=== PATIENT | female | born 1945 | race Caucasian/White ===

== ENCOUNTER 2018-04-30 16:08 | Observation (INO) | payer OTHER, MEDICARE ==
[2018-04-30 16:16] VITALS: BMI 31.8
--- NOTE | 2018-04-30 16:18 | PDOC ---
Attending Attestation - Resident Resident Name: SinghMoo adames - HPI HPI: 04/30/18 19:26 04/30/18 19:33 04/30/18 19:34 Pt presents to the ED complaining of chest pain, shortness of breath and palpitations. Denies prior history of arrythmia. History of WA with stents 9 years ago. Also reports some SEBASTIAN and generalized weakness that has been worsening over the past few days. - Physicial Exam PE: 04/30/18 19:36 Agree with resident exam. PAtient is alert and in NAD. CV: RRR no M/r/g/ Pulm : CTA b/l EXt: no edema. - Critical Care Time Total Critical Care Time: 35 Critical Care Statement: The care of this patient involved high complexity decision making to prevent further life threatening deterioration of the patient 's condition and/or to evaluate & treat vital organ system(s) failure or risk of failure. - Medical Decision Making 04/30/18 19:34 Pt presents to the ED complaining of the acute onset of chest pain, shortness of breath and palpitations. Extremely tachycardic on arrival to the ED. Resolved after adenosine 6. Given her chest pain and her multiple risk factors for cardiac disease, will admit to medicine for r/o ACS.
[2018-04-30] MEDS ORDERED: ADENOSINE 6 MG/2 ML VIAL IVPUSH ONE ×2 (16:28→16:40)
[2018-04-30] MEDS ORDERED: SODIUM CHLORIDE 1,000 ML IV STA (16:35)
[2018-04-30 16:44] LABS: BASO % 0.7 % (0-2.0); EOS % 0.7 % (0-4.5); HEMATOCRIT 38.7 % (32.4-45.2); HEMOGLOBIN 13.7 GM/dL (10.7-15.3); LYMPH % 28.3 % (8-40); MCH 31.3 pg (25.7-33.7); MCHC 35.5 g/dl (32.0-36.0); MEAN CELL VOLUME 88.1 fl (80-96); MEAN PLT VOLUME 10.3 fl (7.5-11.1); NEUT % 61.3 % (42.8-82.8); PLATELET COUNT 211 K/MM3 (134-434); RBC 4.39 M/mm3 (3.60-5.2); RDW 12.5 % (11.6-15.6); WHITE BLOOD COUNT 7.2 K/mm3 (4.0-10.0)
[2018-04-30 17:33] LABS: ALBUMIN 4.2 g/dl (3.4-5.0); ALK PHOS 74 U/L (45-117); ANION GAP 8 MMOL/L (8-16); BILIRUBIN,TOTAL 0.6 mg/dL (0.2-1); BLOOD UREA NITROGEN 21 mg/dL (7-18); CALCIUM 9.1 mg/dL (8.5-10.1); CHLORIDE 101 mmol/L (98-107); CO2 27 mmol/L (21-32); GLUCOSE,RANDOM 130 mg/dL (74-106); POTASSIUM 3.9 mmol/L (3.5-5.1); SGOT/AST 35 U/L (15-37); SGPT/ALT 58 U/L (13-61); SODIUM 136 mmol/L (136-145); TOT PROT 7.2 g/dl (6.4-8.2)
--- NOTE | 2018-04-30 18:02 | PDOC ---
History of Present Illness - General Chief Complaint: Chest Pain Stated Complaint: CHEST PAIN Time Seen by Provider: 04/30/18 16:17 History Source: Patient Exam Limitations: No Limitations - History of Present Illness Initial Comments: 04/30/18 18:02 Patient is a 72F with history of CAD s/p stenting, hiatal hernia, HTN coming in today complaining of palpitations and chest discomfort that started at 3:15pm today. Denies associated shortness of breath, fever, chills, cough, nausea vomiting. Denies history of blood clots, leg swelling, chf history. Patient states that the symptoms started suddenly, took nitro without improvement. Past History - Past Medical History Allergies/Adverse Reactions: Allergies Allergy/AdvReac Type Severity Reaction Status Date / Time No Known Allergies Allergy Verified 04/30/18 16:16 Home Medications: Ambulatory Orders Amlodipine Besylate 5 mg PO DAILY 04/30/18 Losartan Potassium 50 mg PO BID 04/30/18 Rosuvastatin [Crestor -] 10 mg PO DAILY 04/30/18 COPD: No GI Disorders: Yes (hiatal hernia) - Suicide/Smoking/Psychosocial Hx Smoking History: Never smoked Information on smoking cessation initiated: No Hx Alcohol Use: No Drug/Substance Use Hx: No Review of Systems - Review of Systems Able to Perform ROS?: Yes Comments:: 04/30/18 18:25 GENERAL/CONSTITUTIONAL: No fever or chills. No weakness. HEAD, EYES, EARS, NOSE AND THROAT: No change in vision. No sore throat. CARDIOVASCULAR: +chest pain no shortness of breath RESPIRATORY: No cough, wheezing, or hemoptysis. GASTROINTESTINAL: No nausea, vomiting, diarrhea or constipation. GENITOURINARY: No dysuria, frequency, or change in urination. MUSCULOSKELETAL: No joint or muscle swelling or pain. No neck or back pain. SKIN: No rash NEUROLOGIC: No headache, vertigo, loss of consciousness, or change in strength/ sensation. HEMATOLOGIC/LYMPHATIC: No anemia, easy bleeding, or history of blood clots. ALLERGIC/IMMUNOLOGIC: No hives or skin allergy. *Physical Exam - Vital Signs Last Vital Signs Temp Pulse Resp BP Pulse Ox 98 F 78 18 120/70 99 04/30/18 17:30 04/30/18 17:30 04/30/18 17:30 04/30/18 17:30 04/30/18 17:30 - Physical Exam Comments: 04/30/18 18:25 GENERAL: Awake, alert, and fully oriented, in no acute distress HEAD: No signs of trauma, normocephalic, atraumatic EYES: PERRLA, EOMI, sclera anicteric, conjunctiva clear ENT: Auricles normal inspection, hearing grossly normal, nares patent, oropharynx clear without exudates. Moist mucosa NECK: Normal ROM, supple, no lymphadenopathy, JVD, or masses LUNGS: No distress, speaks full sentences, clear to auscultation bilaterally HEART: Tachycardic, regular no murmurs, rubs or gallops, peripheral pulses normal and equal bilaterally. ABDOMEN: Soft, nontender, normoactive bowel sounds. No guarding, no rebound. No masses EXTREMITIES: Normal inspection, Normal range of motion, no edema. No clubbing or cyanosis. NEUROLOGICAL: Cranial nerves II through XII grossly intact. Normal speech, normal gait, no focal sensorimotor deficits SKIN: Warm, Dry, normal turgor, no rashes or lesions noted. Moderate Sedation - Procedure Monitoring Vital Signs: Procedure Monitoring Vital Signs Temperature 98 F 04/30/18 17:30 Pulse Rate 78 04/30/18 17:30 Respiratory Rate 18 04/30/18 17:30 Blood Pressure 120/70 04/30/18 17:30 O2 Sat by Pulse Oximetry (%) 99 04/30/18 17:30 ED Treatment Course - LABORATORY CBC & Chemistry Diagram: 04/30/18 16:30 04/30/18 16:30 - ADDITIONAL ORDERS Additional order review: Laboratory Results 04/30/18 04/30/18 16:30 16:30 D-Dimer 270 Sodium 136 Potassium 3.9 Chloride 101 Carbon Dioxide 27 Anion Gap 8 BUN 21 H Creatinine 1.0 Creat Clearance w eGFR 54.35 Random Glucose 130 H Calcium 9.1 Total Bilirubin 0.6 AST 35 ALT 58 Alkaline Phosphatase 74 Creatine Kinase 129 Troponin I < 0.02 Total Protein 7.2 Albumin 4.2 TSH 1.88 04/30/18 16:30 RBC 4.39 MCV 88.1 MCHC 35.5 RDW 12.5 MPV 10.3 Neutrophils % 61.3 Lymphocytes % 28.3 Monocytes % 9.0 Eosinophils % 0.7 Basophils % 0.7 - Medications Given in the ED: ED Medications Discontinued Medications Generic Name Dose Route Start Last Admin Trade Name Mago PRN Reason Stop Dose Admin Adenosine 6 mg 04/30/18 16:40 04/30/18 16:40 Adenocard - IVPUSH 04/30/18 16:41 6 mg ONCE ONE Administration Sodium Chloride 1,000 mls @ 1,000 mls/hr 04/30/18 16:35 04/30/18 16:39 Normal Saline - IV 04/30/18 17:34 1,000 mls/hr ASDIR STA Administration Medical Decision Making - Critical Care Time Total Critical Care Time (minutes): 35 Critical Care Statement: The care of this patient involved high complexity decision making to prevent further life threatening deterioration of the patient 's condition and/or to evaluate & treat vital organ system(s) failure or risk of failure. - Medical Decision Making 04/30/18 18:26 Patient is 72F with history of CAD, HTN here today with palpitations and chest pain. Vitals notable for tachycardia. Initial BP low in triage. Repeated at 92/ 78. Airway protected, equal breath sounds, good distal pulses w/ normal bp, mentation normal with normal basic neuro exam. Initial EKG showed SVT. Adenosine 6mg given, 1L NS started. SVT broke with adenosine, remained in sinus tachycardia to ~115. After fluid administration, HR in 80s. BP remained stable. 04/30/18 18:44 CBC normal. CMP reassuring. Trop neg. D-dimer normal. TSH normal. CXR clear. Will admit to tele obs for further monitoring of SVT. 04/30/18 19:05 D/W Dr Solorzano, accepted to tele obs. *DC/Admit/Observation/Transfer Diagnosis at time of Disposition: SVT (supraventricular tachycardia) - Discharge Dispostion Condition at time of disposition: Stable Decision to Admit order: Yes - Referrals - Patient Instructions - Post Discharge Activity
--- NOTE | 2018-04-30 19:08 | HP ---
CHIEF COMPLAINT:palpitation , chest discomfort sore throat PCP:Dr Alexander ([facility] ) HISTORY OF PRESENT ILLNESS: Patient is a 72F with history of CAD s/p stenting, hiatal hernia, HTN coming in today complaining of palpitations and chest discomfort that started at 3:15pm today. Denies associated shortness of breath, fever, chills, cough,orthopnea, dyspnea on exertion , Denies history of blood clots, leg swelling. Patient states that the symptoms started suddenly, took nitro without improvement. reports one history of sinus congestion , one time N/V last week denies any urinary symptoms denies any ER course was notable for: (1)EKG (2)Adenosin (3)IV fluids Recent Travel:denies PAST MEDICAL HISTORY: CAD s/p stenting, hiatal hernia, HTN, GERD PAST SURGICAL HISTORY: CAtaract R eye , Carpal tunnel surgery R hand Social History: Smoking:quit 30 years ago , smoked 28 yeas 1 PPD Alcohol:wine socially Drugs: denies Family History: Father heart disease , Mother HTN , stroke and sister with asthma , daughter with thyroid disease Allergies No Known Allergies Allergy (Verified 04/30/18 16:16) HOME MEDICATIONS: Home Medications Medication Instructions Recorded Amlodipine Besylate 5 mg PO DAILY 04/30/18 Losartan Potassium 50 mg PO BID 04/30/18 Rosuvastatin [Crestor -] 10 mg PO DAILY 04/30/18 REVIEW OF SYSTEMS CONSTITUTIONAL: Absent: fever, chills, diaphoresis, generalized weakness, malaise, loss of appetite, weight change HEENT: Absent: rhinorrhea, nasal congestion, throat pain, throat swelling, difficulty swallowing, mouth swelling, ear pain, eye pain, visual changes CARDIOVASCULAR: Absent: chest discomfort , syncope, palpitations, irregular heart rate, lightheadedness, peripheral edema RESPIRATORY: Absent: cough, shortness of breath, dyspnea with exertion, orthopnea, wheezing, stridor, hemoptysis GASTROINTESTINAL: Absent: abdominal pain, abdominal distension, nausea, vomiting, diarrhea, constipation, melena, hematochezia GENITOURINARY: Absent: dysuria, frequency, urgency, hesitancy, hematuria, flank pain, genital pain MUSCULOSKELETAL: Absent: myalgia, arthralgia, joint swelling, back pain, neck pain SKIN: Absent: rash, itching, pallor HEMATOLOGIC/IMMUNOLOGIC: Absent: easy bleeding, easy bruising, lymphadenopathy, frequent infections ENDOCRINE: Absent: unexplained weight gain, unexplained weight loss, heat intolerance, cold intolerance NEUROLOGIC: Absent: headache, focal weakness or paresthesias, dizziness, unsteady gait, seizure, mental status changes, bladder or bowel incontinence PSYCHIATRIC: Absent: anxiety, depression, suicidal or homicidal ideation, hallucinations. PHYSICAL EXAMINATION Vital Signs - 24 hr 04/30/18 04/30/18 04/30/18 16:10 17:17 17:30 Temperature 98.8 F 98 F Pulse Rate 170 H Pulse Rate [ 78 Apical] Respiratory 19 18 Rate Blood Pressure 88/55 L Blood Pressure 120/70 [Right Arm] O2 Sat by Pulse 98 98 99 Oximetry (%) GENERAL: Awake, alert, and fully oriented, in no acute distress. HEAD: Normal with no signs of trauma. EYES: Pupils equal, round and reactive to light, extraocular movements intact, sclera anicteric, conjunctiva clear. No lid lag. EARS, NOSE, THROAT: Ears normal, nares patent, oropharynx clear without exudates. Moist mucous membranes. NECK: Normal range of motion, supple without lymphadenopathy, JVD, or masses. LUNGS: Breath sounds equal, clear to auscultation bilaterally. No wheezes, and no crackles. No accessory muscle use. HEART: Regular rate and rhythm, normal S1 and S2 without murmur, rub or gallop. ABDOMEN: Soft, nontender, not distended, normoactive bowel sounds, no guarding, no rebound, no masses. No hepatomegaly or splenomegaly. MUSCULOSKELETAL: Normal range of motion at all joints. No bony deformities or tenderness. No CVA tenderness. UPPER EXTREMITIES: 2+ pulses, warm, well-perfused. No cyanosis. No clubbing. No peripheral edema. LOWER EXTREMITIES: 2+ pulses, warm, well-perfused. No calf tenderness. No peripheral edema. NEUROLOGICAL: Cranial nerves II-XII intact. Normal speech. Normal gait. PSYCHIATRIC: Cooperative. Good eye contact. Appropriate mood and affect. SKIN: Warm, dry, normal turgor, no rashes or lesions noted, normal capillary refill. Laboratory Results - last 24 hr 04/30/18 04/30/18 04/30/18 16:30 16:30 16:30 WBC 7.2 RBC 4.39 Hgb 13.7 Hct 38.7 MCV 88.1 MCH 31.3 MCHC 35.5 RDW 12.5 Plt Count 211 MPV 10.3 Absolute Neuts (auto) 4.4 Neutrophils % 61.3 Lymphocytes % 28.3 Monocytes % 9.0 Eosinophils % 0.7 Basophils % 0.7 Nucleated RBC % 0 D-Dimer 270 Sodium 136 Potassium 3.9 Chloride 101 Carbon Dioxide 27 Anion Gap 8 BUN 21 H Creatinine 1.0 Creat Clearance w eGFR 54.35 Random Glucose 130 H Calcium 9.1 Total Bilirubin 0.6 AST 35 ALT 58 Alkaline Phosphatase 74 Creatine Kinase 129 Troponin I < 0.02 Total Protein 7.2 Albumin 4.2 TSH 1.88 Blood Type Antibody Screen 04/30/18 16:30 WBC RBC Hgb Hct MCV MCH MCHC RDW Plt Count MPV Absolute Neuts (auto) Neutrophils % Lymphocytes % Monocytes % Eosinophils % Basophils % Nucleated RBC % D-Dimer Sodium Potassium Chloride Carbon Dioxide Anion Gap BUN Creatinine Creat Clearance w eGFR Random Glucose Calcium Total Bilirubin AST ALT Alkaline Phosphatase Creatine Kinase Troponin I Total Protein Albumin TSH Blood Type A POSITIVE Antibody Screen Negative CBC, BMP 04/30/18 16:30 04/30/18 16:30 ASSESSMENT/PLAN: Patient is a 72F with history of CAD s/p stenting, hiatal hernia, HTN coming in today complaining of palpitations and chest discomfort that started at 3:15pm today. admitted to obs tele for SVT # Palpitation due to SVT ,due to dehydration vs URI , r.o Afib * heart rate up to 170 trend down to 110 with adenosin 6 * improved to 90 with 1L IV fluids * clinical research monitor , BP monitor * EKG now and in AM * Trop negative trend * TSH WNL * UA , Influenza A, B to r.o infection as reason for svt * Cardiology Dr Weaver consulted * Echo in AM vs out pt * might benefit from holter monitor rn long term care * Metoprolol 12.5 QID (hold for HR below 60 and SBP below 90 ) # URI * one week history of nasal congestion * F.U Influenza A, B screen * Tylenol for pain and fever * # HTN * resume home meds Amlodipin 5 mg po daily , losartan 50 BID , # HLD * cont crestor # H/o CAD , S.p stent * cont ASA 81 daily # FEN * RL @ 75 cc * E monitor lytes * Low sodium diet # Proph * Lovenox 40 SQ daily # Dispo * obs tele Visit type - Emergency Visit Emergency Visit: Yes ED Registration Date: 04/30/18 Care time: The patient presented to the Emergency Department on the above date and was hospitalized for further evaluation of their emergent condition. - New Patient This patient is new to me today: Yes Date on this admission: 04/30/18 - Critical Care Critical Care patient: No
[2018-04-30] MEDS ORDERED: LACTATED RINGERS SOLUTION 1,000 ML IV SCH (19:45)
--- NOTE | 2018-04-30 20:15 | PN ---
Teaching Attending Note Name of Resident: Jhon Solorzano ATTENDING PHYSICIAN STATEMENT I saw and evaluated the patient. I reviewed the resident's note and discussed the case with the resident. I agree with the resident's findings and plan as documented. SUBJECTIVE: Seen and examined; please see resident note for furter historical information. Presents 2/2 palpitations since 3:15 PM when she was at rest; never had this before, nothing makes it better or worse. Reports some chest discomfort associated with this. 1 week history of congestion, sore throat, and had some nausea/vomitting 1 week ago. No current fevers, chills, etc. No CHF sx. TSH normal. In the ER they gave her Adenosine 6 which brought her to the low 100s and 1L fluid brought her to the 90s. 10 sys ROS done and negative aside from HPI PMH (HTN, CAD s/p 10 yrs ago [Dr. Baum is CV], HLD), PSH, Family hx, Social hx reviewed Meds (amlo 5, losartan 50 bid, crestor 10, ASA 81, vit d) pending reconciliation OBJECTIVE: VS, labs, imaging reviewed NAD, AAO, resting comfortably in bed NC AT EOMI PERRLA RRR s1/2 no mgr (HR 90s) Lungs CTAB, w/ sym exp NT ND +BS CN2-12 wnl, no fnd Normal mood, appropriate affect. EKG reviewed; NSR Labs unremarkable Echo pending ASSESSMENT AND PLAN: Patient presents for palpitations likely 2/2 SVT; hemodynamically stable at this point after adenosine and fluid in the ER. Starting on metoprolol, checking echo, consulting her CV. 1) SVT -Resolved; monitor on tele, starting MT 12.5 q6h with plan to convert to long acting. Check echo, consult Dr. Baum. -Her presenting sx were likely 2/2 this and have resolved -Check Mg. Preceeded by viral prodrome so will check influenza. 2) CAD -Continue home meds 3) HTN -Continue amlodipine, ARB 4) HLD -Continue statin Full Code
[2018-04-30] MEDS: METOPROLOL TARTRATE 25 MG TABLET (FP) PO SCH ×2 (21:00→22:00)
[2018-04-30] MEDS ORDERED: METOPROLOL TARTRATE 25 MG TABLET (FP) ONE (21:23)
[2018-04-30] MEDS ORDERED: METOPROLOL TARTRATE 25 MG TABLET (FP) PO SCH (22:00)
[2018-04-30] MEDS: LOSARTAN POTASSIUM 50 MG TABLET (FP) PO SCH (22:30)
[2018-05-01] MEDS ORDERED: ASPIRIN 81 MG CHEWABLE TABLETS PO ONE (03:06)
[2018-05-01] MEDS ORDERED: MELATONIN 5 MG TABLETS PO ONE (04:36)
[2018-05-01] MEDS ORDERED: ASPIRIN 81 MG CHEWABLE TABLETS ONE (04:46)
[2018-05-01 06:41] VITALS: TEMP 98.2
[2018-05-01 06:52] LABS: BASO % 1.1 % (0-2.0); EOS % 0.8 % (0-4.5); HEMATOCRIT 36.5 % (32.4-45.2); HEMOGLOBIN 12.6 GM/dL (10.7-15.3); LYMPH % 36.5 % (8-40); MCH 30.5 pg (25.7-33.7); MCHC 34.5 g/dl (32.0-36.0); MEAN CELL VOLUME 88.4 fl (80-96); MEAN PLT VOLUME 9.9 fl (7.5-11.1); MONO % 9.2 % (3.8-10.2); NEUT % 52.4 % (42.8-82.8); PLATELET COUNT 165 K/MM3 (134-434); RBC 4.12 M/mm3 (3.60-5.2); RDW 12.6 % (11.6-15.6); WHITE BLOOD COUNT 4.1 K/mm3 (4.0-10.0)
[2018-05-01 07:02] LABS: INR 1.08 (0.83-1.09); PROTHROMBIN TIME (PATIENT) 12.8 SEC (9.7-13.0)
[2018-05-01 07:04] LABS: ACTIVATED PTT 30.9 SECONDS (25.2-36.5)
[2018-05-01 07:31] LABS: ALBUMIN 3.6 g/dl (3.4-5.0); ALK PHOS 63 U/L (45-117); ANION GAP 4 MMOL/L (8-16); BILIRUBIN,TOTAL 0.6 mg/dL (0.2-1); BLOOD UREA NITROGEN 14 mg/dL (7-18); CALCIUM 9.1 mg/dL (8.5-10.1); CHLORIDE 107 mmol/L (98-107); CO2 28 mmol/L (21-32); CREATININE 0.7 mg/dL (0.55-1.3); GLUCOSE,RANDOM 88 mg/dL (74-106); MAGNESIUM 2.4 mg/dL (1.8-2.4); PHOSPHOROUS 3.5 mg/dL (2.5-4.9); POTASSIUM 3.9 mmol/L (3.5-5.1); SGOT/AST 39 U/L (15-37); SGPT/ALT 48 U/L (13-61); SODIUM 139 mmol/L (136-145)
[2018-05-01] MEDS ORDERED: ENOXAPARIN NA (PORCINE) 40 MG/0.4 ML DISP.SYRIN SQ SCH (10:00)
[2018-05-01] MEDS ORDERED: ASPIRIN COATED 81 MG TABLET.EC PO SCH (10:00)
[2018-05-01] MEDS ORDERED: amLODIPine BESYLATE 5 MG TABLET (FP) PO SCH (10:00)
[2018-05-01] MEDS ORDERED: metoPROLOL SUCCINATE 25 MG TAB.SR.24H (FP) PO SCH (10:00)
--- NOTE | 2018-05-01 10:05 | DS ---
Physical Examination Vital Signs: Vital Signs Temperature 98.2 F 05/01/18 06:40 Pulse Rate 69 05/01/18 06:40 Respiratory Rate 18 05/01/18 06:40 Blood Pressure 125/76 05/01/18 06:40 O2 Sat by Pulse Oximetry (%) 97 05/01/18 08:00 Findings/Remarks: denies CP or SOB, singh sno fever ro chills. feels much better . PE: VS reviewed. CV: RRR, no mRG ' Lungs: CATB Ext : no edema , varicose veins . Abd: soft, NT, Nd , NL BS Labs: CBC, BMP 05/01/18 06:30 05/01/18 06:30 Discharge Summary Reason For Visit: SUPRAVENTRICULAR TACHYCARDIA Current Active Problems SVT (supraventricular tachycardia) (Acute) Hospital Course: 72 y/o lady with h/o HTN, CAD s/p 10 yrs agoand hyperlipidemia who presented with palpitations and was found to have SVTs. she was givenadnosine in [place] converted to sinus rhythm . her basic blood workup was normal and her TSH was nl. She was recently takenoffher bistolyc due to weight gain and that's why probably she went into SVTs. she was seen by Dr. Johnson here. no change in her home meds but toprol was added dispo: DC home condition improved f/u PCP and card Condition: Improved - Instructions Diet, Activity, Other Instructions: you were diagnosed with supraventricular tachycardia. you were put on a new medication called toprol. please take daily check your blood pressure every morning before you take your medications. if BP is < 100 please hold meds and call Dr. Baum fr advise. call MD or come to ER with palpitations, light headedness, chest pain or any other abnormal symptoms Referrals: Willy Baum MD [Staff Physician] - 05/05/18 Emily Carrillo [Primary Care Provider] - Disposition: HOME - Home Medications Comprehensive Discharge Medication List: Ambulatory Orders Amlodipine Besylate 5 mg PO DAILY 04/30/18 Aspirin [ASA -] 81 mg PO DAILY 04/30/18 Losartan Potassium 50 mg PO BID 04/30/18 Rosuvastatin [Crestor -] 10 mg PO DAILY 04/30/18 Metoprolol Succinate [Toprol XL -] 25 mg PO DAILY #30 tab.sr.24h 05/01/18 This patient is new to me today: Yes Date on this admission: 05/01/18 Emergency Visit: Yes ED Registration Date: 04/30/18 Care time: The patient presented to the Emergency Department on the above date and was hospitalized for further evaluation of their emergent condition. Critical Care patient: No - Discharge Referral Referred to [facility] Med P.C.: No
[2018-05-01] MEDS: LOSARTAN POTASSIUM 50 MG TABLET (FP) PO SCH (10:21)
[2018-05-01 10:25] VITALS: BP 130/84; PULSE 70
--- NOTE | 2018-05-01 11:19 | CON.CARD ---
Cardiology Consult (text) - Consultation Consultation Note: cc: palps hpi: 72 f hx remote mi/pci, svt, htn, hld, here with palps. Yesterday was relaxing and started to feel heart racing and throat burning and mild sob. Waited but sxs persisted so came to ER. No dizzy loc pnd orthopnea le edema. Found svt and given adenosine and converted to sr and sxs resolved. Pt feels well now, asking to go home. She has hx of svt but episodes rare, hasnt had in years. Sees dr chandler for cardio. pmh: per hpi psh: pci social: no tob fam: no premature cad ros: per hpi; no nvd fever singh vision changes gib hematuria dysuria muscle pain meds: Home Medications Medication Instructions Recorded Amlodipine Besylate 5 mg PO DAILY 04/30/18 Aspirin [ASA -] 81 mg PO DAILY 04/30/18 Losartan Potassium 50 mg PO BID 04/30/18 Rosuvastatin [Crestor -] 10 mg PO DAILY 04/30/18 Metoprolol Succinate [Toprol XL -] 25 mg PO DAILY #30 tab.sr.24h 05/01/18 pe: Vital Signs Period Temp Pulse Resp BP Sys/Ramirez Pulse Ox Last 24 Hr 97.7 F-98.8 F 68-170 - 88-130/55-84 97-100 nad no jvd rrr s1s2 no mrg cta bl nl eff aaox3 no jaundice diaphoresis pos dp pt no carotid bruits abd nt nd pos bs no le e/c/c Laboratory Last Values WBC 4.1 K/mm3 (4.0-10.0) 05/01/18 06:30 RBC 4.12 M/mm3 (3.60-5.2) 05/01/18 06:30 Hgb 12.6 GM/dL (10.7-15.3) 05/01/18 06:30 Hct 36.5 % (32.4-45.2) 05/01/18 06:30 MCV 88.4 fl (80-96) 05/01/18 06:30 MCH 30.5 pg (25.7-33.7) 05/01/18 06:30 MCHC 34.5 g/dl (32.0-36.0) 05/01/18 06:30 RDW 12.6 % (11.6-15.6) 05/01/18 06:30 Plt Count 165 K/MM3 (134-434) D 05/01/18 06:30 MPV 9.9 fl (7.5-11.1) 05/01/18 06:30 Absolute Neuts (auto) 2.1 K/mm3 (1.5-8.0) 05/01/18 06:30 Neutrophils % 52.4 % (42.8-82.8) 05/01/18 06:30 Lymphocytes % 36.5 % (8-40) D 05/01/18 06:30 Monocytes % 9.2 % (3.8-10.2) 05/01/18 06:30 Eosinophils % 0.8 % (0-4.5) 05/01/18 06:30 Basophils % 1.1 % (0-2.0) 05/01/18 06:30 Nucleated RBC % 0 % (0-0) 05/01/18 06:30 PT with INR 12.80 SEC (9.7-13.0) 05/01/18 06:30 INR 1.08 (0.83-1.09) 05/01/18 06:30 PTT (Actin FS) 30.9 SECONDS (25.2-36.5) 05/01/18 06:30 D-Dimer 270 ng/ml (0-500) 04/30/18 16:30 Sodium 139 mmol/L (136-145) 05/01/18 06:30 Potassium 3.9 mmol/L (3.5-5.1) 05/01/18 06:30 Chloride 107 mmol/L (98-107) 05/01/18 06:30 Carbon Dioxide 28 mmol/L (21-32) 05/01/18 06:30 Anion Gap 4 MMOL/L (8-16) L 05/01/18 06:30 BUN 14 mg/dL (7-18) 05/01/18 06:30 Creatinine 0.7 mg/dL (0.55-1.3) 05/01/18 06:30 Creat Clearance w eGFR > 60 (>60) 05/01/18 06:30 Random Glucose 88 mg/dL (74-106) 05/01/18 06:30 Calcium 9.1 mg/dL (8.5-10.1) 05/01/18 06:30 Phosphorus 3.5 mg/dL (2.5-4.9) 05/01/18 06:30 Magnesium 2.4 mg/dL (1.8-2.4) 05/01/18 06:30 Total Bilirubin 0.6 mg/dL (0.2-1) 05/01/18 06:30 AST 39 U/L (15-37) H 05/01/18 06:30 ALT 48 U/L (13-61) 05/01/18 06:30 Alkaline Phosphatase 63 U/L (45-117) 05/01/18 06:30 Creatine Kinase 129 U/L (26-192) 04/30/18 16:30 Troponin I 0.08 ng/ml (0.00-0.05) H 05/01/18 01:57 Total Protein 7.0 g/dl (6.4-8.2) 05/01/18 06:30 Albumin 3.6 g/dl (3.4-5.0) 05/01/18 06:30 TSH 1.88 uIU/ml (0.358-3.74) 04/30/18 16:30 Blood Type A POSITIVE 04/30/18 20:54 Antibody Screen Negative 04/30/18 16:30 ecg 1: svt ecg 2: sr, nl intervals, no ischemic changes a/p: 72 f hx remote mi/pci, svt, htn, hld, here with palps. palps, svt: -pt with hx svt with rare symptoms, here with episode of palps/svt that responded to adenosine -now that in SR she feels well -no signs chf, acs -tsh wnl -start toprol 25 qd -cardiac burt ok for dc, will f/u this week with dr chandler cad, mi, pci: -stable, no signs acs -cont statin, asa htn: -stable, cont current meds hld: -cont statin
--- NOTE | 2018-05-01 11:50 | EKG ---
Test Reason : Blood Pressure : / mmHG Vent. Rate : 064 BPM Atrial Rate : 064 BPM P-R Int : 196 ms QRS Dur : 118 ms QT Int : 448 ms P-R-T Axes : 021 -12 -13 degrees QTc Int : 462 ms NORMAL SINUS RHYTHM NON-SPECIFIC INTRA-VENTRICULAR CONDUCTION DELAY BORDERLINE ECG WHEN COMPARED WITH ECG OF 30-APR-2018 16:23, VENT. RATE HAS DECREASED BY 96 BPM NON-SPECIFIC INTRA-VENTRICULAR CONDUCTION DELAY HAS REPLACED INCOMPLETE RIGHT BUNDLE BRANCH BLOCK NON-SPECIFIC CHANGE IN ST SEGMENT IN INFERIOR LEADS ST NO LONGER DEPRESSED IN ANTEROLATERAL LEADS Confirmed by ANKIT BILLINGSLEY MD ([id number]) on 05/01/2018 11:49:53 AM Referred By: Confirmed By:ANKIT BILLINGSLEY MD
--- NOTE | 2018-05-01 11:51 | EKG ---
Test Reason : Blood Pressure : / mmHG Vent. Rate : 160 BPM Atrial Rate : 156 BPM P-R Int : 000 ms QRS Dur : 112 ms QT Int : 304 ms P-R-T Axes : 000 025 -47 degrees QTc Int : 496 ms SUPRAVENTRICULAR TACHYCARDIA INCOMPLETE RIGHT BUNDLE BRANCH BLOCK ABNORMAL ECG WHEN COMPARED WITH ECG OF 13-JUN-2008 07:18, VENT. RATE HAS INCREASED BY 88 BPM INCOMPLETE RIGHT BUNDLE BRANCH BLOCK IS NOW PRESENT Confirmed by ANALILIA VILLEDA, ANKIT ([id number]) on 05/01/2018 11:51:02 AM Referred By: Confirmed By:ANKIT BILLINGSLEY MD
[2018-05-01] MEDS ORDERED: ROSUVASTATIN CA 10 MG TABLET (FP) PO SCH (22:00)
== END 2018-05-01 11:00 | disposition home or self-care (01) ==
LOC: JER 16:08 → JERBED 18:45
PROVIDERS: ADMIT Internal Medicine; ATTEND Internal Medicine
PROC: 3E033GC Introduction of Other Therapeutic Substance into Peripheral Vein, Percutaneous Approach (ICD-10-PCS; principal; 2018-04-30)
PROC: 3E0337Z Introduction of Electrolytic and Water Balance Substance into Peripheral Vein, Percutaneous Approach (ICD-10-PCS; 2018-04-30)
DX: I47.1 Supraventricular tachycardia (principal); I10 Essential (primary) hypertension; I25.10 Atherosclerotic heart disease of native coronary artery without angina pectoris; I25.2 Old myocardial infarction; Z95.5 Presence of coronary angioplasty implant and graft; R00.2 Palpitations; R77.8 Other specified abnormalities of plasma proteins; E78.5 Hyperlipidemia, unspecified; J06.9 Acute upper respiratory infection, unspecified
CPT/HCPCS: 36415; 71045-TC-FY; 80053; 82550; 83735; 84100; 84443; 84484; 85025; 85379; 85610; 85730; 86850; 86900; 86901; 93005; 93010; 96361; 96374; 99285-25; G0378; J7030